=== PATIENT | female | born 1985 | race Two or more races ===

== ENCOUNTER 2019-11-17 13:06 | Emergency (ER) | payer MEDICAID ==
[~2019-11-17] VITALS: Ht 162.6 cm; Wt 72.6 kg
[2019-11-17 13:20] VITALS: BP 119/75
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
--- NOTE | 2019-11-17 15:03 | NUR ---
ED Nurse Note: Report given to Shaylee RN @ [facility]
--- NOTE | 2019-11-17 15:24 | NUR ---
ED Nurse Note: [facility] @ bedside with transport nurse. Report given.
[2019-11-17 15:40] VITALS: BP 123/71
--- NOTE | 2019-11-17 15:40 | NUR ---
ER DISCHARGE NOTE: Pt discharged with [facility] ambulance ACLS unit. Pt in stable condition, no acute distress noted. Pt states that she still feels the baby and denies any vaginal bleeding or cramping. Respirations even and unlabored on room air. Vitals stable as documented. Pt discharged safely via gurney en route to [facility].
== END 2019-11-17 15:40 | disposition short-term general hospital (02) ==
LOC: EMR 13:38
DX: O26.93 Pregnancy related conditions, unspecified, third trimester (principal); F07.81 Postconcussional syndrome; S00.83XA Contusion of other part of head, initial encounter; Z3A.29 29 weeks gestation of pregnancy; Z88.8 Allergy status to other drugs, medicaments and biological substances; Y04.2XXA Assault by strike against or bumped into by another person, initial encounter; Y92.9 Unspecified place or not applicable
CPT/HCPCS: 99283